=== PATIENT | male | born 1945 | race Hispanic/Latino ===

== ENCOUNTER 2019-04-21 11:08 | Emergency (ER) | payer BC, MEDICARE ==
[2019-04-21 11:15] VITALS: RESP 18; TEMP 98.2; BMI 25.8
--- NOTE | 2019-04-21 12:53 | ED PDOC ---
Arrival/HPI - General Historian: Patient - History of Present Illness Narrative History of Present Illness (Text): 04/21/19 12:50 CC: Pulse Rate HPI: 73 year old male w/ PMH of Hypertension comes to hospital for evaluation of elevated pulse. Patient states that at home he feels like his heart is racing when he is at rest. Patient states he takes his heart rate at this time because he has a bp monitor at home. At these moments, he notes that his heart rate is 92. During these episodes, patient is completely asymptomatic, denies chest pain, shortness of breath, n/v, diaphoresis, radiation of pain into arm or neck. Patient was worried that his heart rate was elevated and decided to come to evaluation after speaking with primary doctor. Dr. Figueredo, pmd, recommended he come into ED for routine blood work. Patient currently complains of nothing and denies all complaints. Time/Duration: 1 week Symptom Onset: Gradual Symptom Course: Unchanged Activities at Onset: Rest Context: Sitting <Cate Wadsworth - Last Filed: 04/21/19 13:57> <Harpal Contreras - Last Filed: 04/21/19 16:12> - General Chief Complaint: Palpitations Time Seen by Provider: 04/21/19 12:20 Past Medical History - Provider Review Nursing Documentation Reviewed: Yes - Cardiac Hx Hypertension: Yes - Psychiatric Hx Substance Use: No - Surgical History Other/Comment: Back sx <Cate Wadsworth - Last Filed: 04/21/19 13:57> Family/Social History - Physician Review Nursing Documentation Reviewed: Yes Family/Social History: No Known Family HX Smoking Status: Never Smoked Hx Alcohol Use: Yes Frequency of alcohol use: Socially Hx Substance Use: No <AnanthMadaser - Last Filed: 04/21/19 13:57> Allergies/Home Meds <AnanthMadaser - Last Filed: 04/21/19 13:57> <Harpal Contreras - Last Filed: 04/21/19 16:12> Allergies/Adverse Reactions: Allergies No Known Allergies Allergy (Verified 04/21/19 12:13) Home Medications: Home Meds Medication Instructions Recorded Confirmed Atenolol [Tenormin] 50 mg PO DAILY 04/21/19 04/21/19 FLUoxetine [Prozac] 20 mg PO DAILY 04/21/19 04/21/19 Valsartan [Diovan] 320 mg PO QPM 04/21/19 04/21/19 amLODIPine [Norvasc] 10 mg PO DAILY 04/21/19 04/21/19 hydroCHLOROthiazide [Microzide] 12.5 mg PO DAILY 04/21/19 04/21/19 traZODone [Desyrel] 50 mg PO QPM 04/21/19 04/21/19 Review of Systems - Review of Systems Constitutional: Normal. absent: Fatigue, Weight Change, Fevers Eyes: Normal. absent: Vision Changes, Photophobia, Eye Pain ENT: Normal. absent: Hearing Changes, Tinnitus, TMJ Pain Respiratory: Normal. absent: SOB, Cough, Sputum, Wheezing Cardiovascular: Palpitations. absent: Chest Pain, Edema, Calf Pain, Orthopnea, Syncope Gastrointestinal: Normal. absent: Abdominal Pain, Stool Changes, Constipation Genitourinary Male: Normal. absent: Dysuria, Frequency, Hematuria Musculoskeletal: Normal. absent: Arthralgias, Back Pain, Neck Pain Skin: Normal. absent: Rash, Pruritis, Skin Lesions Neurological: Normal. absent: Headache, Dizziness, Focal Weakness Endocrine: Normal. absent: Diaphoresis, Polyuria, Polydipsia Hemo/Lymphatic: Normal. absent: Adenopathy, Easy Bleeding Psychiatric: Normal. absent: Anxiety, Depression <Cate Wadsworth - Last Filed: 04/21/19 13:57> Physical Exam Vital Signs Reviewed: Yes Vital Signs Temp Pulse Resp BP Pulse Ox 04/21/19 11:14 98.2 F 65 18 138/80 96 Temperature: Afebrile Blood Pressure: Normal Pulse: Regular Respiratory Rate: Normal Appearance: Positive for: Well-Appearing, Non-Toxic, Comfortable Pain Distress: None Mental Status: Positive for: Alert and Oriented X 3 - Systems Exam Head: Present: Atraumatic, Normocephalic Pupils: Present: PERRL Extroacular Muscles: Present: EOMI Conjunctiva: Present: Normal Mouth: Present: Moist Mucous Membranes Neck: Present: Normal Range of Motion. No: Meningeal Signs, JVD Respiratory/Chest: Present: Clear to Auscultation, Good Air Exchange. No: Respiratory Distress, Accessory Muscle Use Cardiovascular: Present: Regular Rate and Rhythm, Normal S1, S2. No: Murmurs, Tachycardic Abdomen: Present: Normal Bowel Sounds. No: Tenderness, Distention, Peritoneal Signs Upper Extremity: Present: Normal Inspection. No: Cyanosis, Edema Lower Extremity: Present: Normal Inspection. No: Edema Neurological: Present: GCS=15, CN II-XII Intact, Speech Normal Skin: Present: Warm, Dry, Normal Color. No: Rashes Psychiatric: Present: Alert, Oriented x 3, Normal Insight, Normal Concentration <Bethel Wadsworthaser - Last Filed: 04/21/19 13:57> Vital Signs Temp Pulse Resp BP Pulse Ox 04/21/19 14:08 98.2 F 68 18 129/83 100 04/21/19 11:14 98.2 F 65 18 138/80 96 <BosompchayHarpal - Last Filed: 04/21/19 16:12> Medical Decision Making ED Course and Treatment: 04/21/19 12:56 Impression 73 year old male w/ PMH of Hypertension comes to hospital for evaluation of elevated pulse. Plan -CBC -CMP -Trop -EKG Prior Visits All prior documentation and lab work reviewed prior to evaluation Progress Notes pending lab work for possible d/c 04/21/19 13:51 Labs reviewed, Cr elevated, unknown baseline recommend to increase fluid intake, repeat cbc within a week with primary medical doctor Re-evaluation Time: 13:51 Reassessment Condition: Re-examined, Improved - Lab Interpretations Lab Results: 04/21/19 13:12 04/21/19 13:12 Lab Results 04/21/19 13:12: Sodium 140, Potassium 4.5, Chloride 103, Carbon Dioxide 29, Anion Gap 13, BUN 30 H, Creatinine 1.6 H, Est GFR ( Amer) 52, Est GFR (Non-Af Amer) 43, Random Glucose 108, Calcium 10.1, Total Bilirubin 0.6, AST 30, ALT 26, Alkaline Phosphatase 70, Troponin I < 0.01, Total Protein 8.1, Albumin 4.6, Globulin 3.5, Albumin/Globulin Ratio 1.3 04/21/19 13:12: WBC 8.8, RBC 4.83, Hgb 14.3, Hct 43.3, MCV 89.6, MCH 29.6, MCHC 33.0, RDW 13.2, Plt Count 251, MPV 8.6, Neut % (Auto) 66.9, Lymph % (Auto) 18.7 L, [place] % (Auto) 10.0 H, Eos % (Auto) 3.7, Baso % (Auto) 0.7, Lymph # (Auto) 1.7, [place] # (Auto) 0.9 H, Eos # (Auto) 0.3, Baso # (Auto) 0.06, Absolute Neuts (auto) 5.91 I have reviewed the lab results: Yes Interpretation: Abnormal lab values <Cate Wadsworth - Last Filed: 04/21/19 13:57> ED Course and Treatment: 04/21/19 16:11 Patient Seen with Resident: In agreement with resident note which contains more details about the patient. Patient seen and evaluated with resident. Came up with plan and treatment together. - Lab Interpretations Lab Results: Troponin I < 0.01 ng/mL 04/21/19 13:12 Total Bilirubin 0.6 mg/dL (0.2-1.3) 04/21/19 13:12 AST 30 U/L (17-59) 04/21/19 13:12 ALT 26 U/L (7-56) 04/21/19 13:12 Alkaline Phosphatase 70 U/L (38-126) 04/21/19 13:12 Total Protein 8.1 g/dL (5.8-8.3) 04/21/19 13:12 Albumin 4.6 g/dL (3.0-4.8) 04/21/19 13:12 Globulin 3.5 gm/dL 04/21/19 13:12 Albumin/Globulin Ratio 1.3 (1.1-1.8) 04/21/19 13:12 <Harpal Contreras - Last Filed: 04/21/19 16:12> Disposition/Present on Arrival - Present on Arrival Any Indicators Present on Arrival: No History of DVT/PE: No History of Uncontrolled Diabetes: No Urinary Catheter: No History of Decub. Ulcer: No History Surgical Site Infection Following: None - Disposition Have Diagnosis and Disposition been Completed?: Yes Disposition Time: 13:57 Patient Plan: Discharge <Cate Wadsworth - Last Filed: 04/21/19 13:57> <Harpal Contreras - Last Filed: 04/21/19 16:12> - Disposition Diagnosis: Elevated pulse rate Disposition: HOME/ ROUTINE Condition: FAIR Additional Instructions: 1. Patient will need repeat CMP within a week of discharge from hospital. 2. Patient recommended to have 6-8 cups of water a day. 3. Please follow up with primary medical doctor within a week. Referrals: Evan Figueredo MD [Primary Care Provider] - Follow up with primary Forms: [facility] ([place]ian)
[2019-04-21 13:23] LABS: BASO # 0.06 K/mm3 (0.0-2.0); BASO % 0.7 % (0.0-3.0); EOS # 0.3 (0.0-0.7); EOS % 3.7 % (1.5-5.0); HEMOGLOBIN 14.3 g/dL (14.0-18.0); LYMPH # 1.7 (1.2-3.4); LYMPH % 18.7 % (22.0-35.0); MEAN CELL VOLUME 89.6 fl (80.0-105.0); MEAN CORPUSCULAR HEMOGLOBIN 29.6 pg (25.0-35.0); MEAN PLATELET VOLUME 8.6 fl (7.0-11.0); MONO # 0.9 (0.1-0.6); RBC 4.83 10^6/uL (3.5-6.1); RED CELL DISTRIBUTION WIDTH 13.2 % (11.5-14.5); WHITE BLOOD COUNT 8.8 10^3/uL (4.5-11.0)
[2019-04-21 13:32] LABS: ALB/GLOB RATIO 1.3 (1.1-1.8); ALBUMIN 4.6 g/dL (3.0-4.8); ALT/SGPT 26 U/L (7-56); AST/SGOT 30 U/L (17-59); BLOOD UREA NITROGEN 30 mg/dL (7-21); CALCIUM 10.1 mg/dL (8.4-10.5); GFR NON-AFRICAN AMERICAN 43
[2019-04-21 13:43] LABS: TROPONIN I < 0.01 ng/mL
[2019-04-21 14:09] VITALS: BP 129/83; PULSE 68; O2SAT 100
--- NOTE | 2019-04-21 19:12 | CARD ---
APPROVED REPORT Date of service: 04/21/2019 EKG Measurement Heart [id number] <Conclusion> Poor data quality, interpretation may be adversely affected Normal sinus rhythm Moderate voltage criteria for LVH, may be normal variant Borderline ECG
== END 2019-04-21 14:23 | disposition home or self-care (01) ==
LOC: ED 11:08
DX: R00.2 Palpitations (principal); I10 Essential (primary) hypertension